=== PATIENT | female | born 1970 | race African-American/Black ===

== ENCOUNTER 2024-05-28 13:58 | Emergency (ER) | payer MEDICAID, OTHER ==
[~2024-05-28] VITALS: Ht 175.3 cm; Wt 93.0 kg
[2024-05-28 14:29] VITALS: O2SAT 99
[2024-05-28 15:26] LABS: BASOPHILS % 0.3 % (0.0-2.0); CARBON DIOXIDE 25 mEq/L (21-32); CHLORIDE 97 mEq/L (98-107); HEMATOCRIT. 43.5 % (36.0-48.0); HEMOGLOBIN. 13.8 g/dL (12.0-16.0); LYMPHOCYTES % 32.5 % (20.0-50.0); MEAN CORPUSCULAR HEMOGLOBIN 28.2 pg (28.0-32.0); MEAN CORPUSCULAR HGB CONC 31.8 g/dL (31.0-37.0); MEAN CORPUSCULAR VOLUME 88.8 fL (81.0-99.0); MEAN PLATELET VOLUME 8.3 fl (7.4-10.4); NEUTROPHILS % 58.2 % (40.0-76.0); PLATELET 368 x1000/uL (130-400); POTASSIUM 4.5 mEq/L (3.5-5.1); RED CELL DISTRIBUTION WIDTH 15.7 % (11.6-14.6); SODIUM 131 mEq/L (136-145); WHITE BLOOD COUNT 7.5 x1000/uL (4.5-11.0)
[2024-05-28 15:27] LABS: CALCIUM 9.9 mg/dL (8.7-10.4)
[2024-05-28 15:30] LABS: ADD RBC MORPHOLOGY YES; DIFFERENTIAL COMMENT 1
[2024-05-28 15:32] LABS: CREATININE 1.1 mg/dL (0.6-1.0); UREA NITROGEN BLOOD 10 mg/dL (9-23)
[2024-05-28] MEDS ORDERED: INSULIN REGULAR (HUMULIN R) 1000UNITS/10ML VIAL IV STA (15:37)
[2024-05-28 15:42] LABS: GLUCOSE 515 mg/dL (70-105)
[2024-05-28 16:42] LABS: PLATELET ESTIMATE NORMAL
[2024-05-28] MEDS: SODIUM CHLORIDE 0.9% 1,000 ML IV ONE ×2 (18:02)
[2024-05-28] MEDS: INSULIN REGULAR (HUMULIN R) 1000UNITS/10ML VIAL IV NR (18:12)
[2024-05-28 21:27] VITALS: BP 134/89; PULSE 87; RESP 16; TEMP 36.66960; O2SAT 99
[2024-05-28 22:09] LABS: CLARITY URINE CLEAR (CLEAR); COLOR URINE YELLOW (YELLOW); GLUCOSE URINE 3+ (NEGATIVE); KETONES URINE NEGATIVE (NEGATIVE); LEUKOCYTE ESTERASE URINE NEGATIVE (NEGATIVE); NITRITE URINE NEGATIVE (NEGATIVE); OCCULT BLOOD URINE NEGATIVE (NEGATIVE); PH URINE 5.5 (4.5-8.0); PROTEIN URINE NEGATIVE (NEGATIVE); SPECIFIC GRAVITY URINE 1.044 (1.005-1.030); UROBILINOGEN URINE 0.2 E.U./dL (0.2-1.0)
[2024-05-28 22:19] LABS: BACTERIA URINE NONE SEEN; RBC URINE NONE SEEN /hpf (0-2); SQUAMOUS EPITHELIAL CELL URINE RARE /lpf (RARE/1+); WBC URINE 0-2 /hpf (0-2)
[2024-05-28 22:33] LABS: TROPONIN I HIGH SENSITIVITY 6 ng/L (3.0-34)
[2024-05-28 22:34] LABS: BETA HYDROXYBUTYRATE 0.2 mMol/L (0.0-0.3)
== END 2024-05-28 21:30 | disposition home or self-care (01) ==
LOC: ER 14:09
DX: E11.65 Type 2 diabetes mellitus with hyperglycemia (principal)
CPT/HCPCS: 80048; 81003; 82010; 82962; 85025; 84484; 36415; 71045; 96361; 96374; 99284; J1815; J7030